=== PATIENT | male | born 1990 ===

== ENCOUNTER 2021-03-24 19:31 | Inpatient (IN) | payer SELFPAY ==
[2021-03-24 19:47] VITALS: BP 144/99; PULSE 70; RESP 18; TEMP 36.6; O2SAT 97
[2021-03-24 19:49] VITALS: BMI 29.2
[2021-03-24 20:29] VITALS: BP 129/78; PULSE 82; RESP 16; TEMP 36.7; O2SAT 98
[2021-03-24] MEDS: hyDROXYzine 25 mg Capsule 50 MG PO (21:31)
[2021-03-24] MEDS: trazodone 50 mg Tablet PO (21:31)
--- NOTE | 2021-03-24 21:35 | PC.NURSE ---
PT REQUESTED SLEEP AND ANXIETY MEDS, TRAZODONE 50MG PO FOR SLEEP AND VISTARIL 50MG PO FOR ANXIETY GIVEN.
--- NOTE | 2021-03-24 22:00 | PC.NURSE ---
PT RESTING QUIETLY WITH BOTH EYES CLOSED.
[2021-03-25 06:00] VITALS: BP 122/99; PULSE 89; RESP 15; TEMP 36.6; O2SAT 98
--- NOTE | 2021-03-25 06:31 | PM.NHP ---
Providers/Chief Complaint Admitting Physician: Aurelio Weber MD Chief Complaint: SI HPI NPU History of Present Illness Paulie Castillo is a 30 year old male who presented to the outside hospital after an intentional overdose with acetaminophen, brought in by law enforcement, who was called for domestic dispute. He reported that 8 p.m. the night previous, he attempted suicide with approximately 27 acetaminophens; feeling depressed over the loss of his daughter in November of 2019, history of depression and post-traumatic stress disorder, but denied previous suicide attempt. He denies being suicidal at this time, but reports he wants to get back on his medication. There was intentional vomiting after the ingestion according to the patient. He was given N-acetylcysteine prophylactically but then his acetaminophen level came back negative, and they proceeded with finding him a place for ongoing treatment. His UDS there was positive for amphetamines, methamphetamines, and cannabis. He was transferred to [facility] and admitted to the neuropsychiatric unit for definitive treatment of those issues. On the unit, he presents reporting that he got in an argument with his girlfriend, he reports that he came up here from [facility], and is in the [employer], endorses being on Buspar and Abilify, but has not been on it for some time. He has never been in a psychiatric hospital. He reports getting some outpatient services in the past and being off of these medications that he reports were effective for many years. He endorsed no previous history of suicide attempt, reports that he has been struggling with mental health issues throughout his life, but things got worse last year when his daughter who was 4 months, 6 days old of [place]. He reports that he moved here, got , and now has a stepchild. He reports that finances have been problematic, and they have been arguing for a couple of weeks. He reports that he has anger problems on top of his depression and post-traumatic stress disorder. He reports that he is open to restarting the Buspar and the Abilify because he reports they were effective in the past. PSYCHIATRIC HISTORY: As above. SUBSTANCE ABUSE HISTORY: He was not forthcoming with any addiction problems but did acknowledge that he has used recently. FAMILY HISTORY: He reports that there are no mental health issues but does endorse his dad?s side having significant alcohol and other drug issues. He denies any history of suicide attempts or completions. DEVELOPMENTAL HISTORY: He denies any issues with his mother?s or delivery of him. He met all developmental milestones on time. He denies any speech therapy, learning support, emotional support, or special education classes. PSYCHOSOCIAL HISTORY: He reports that his parents were together when he was born and that he has a younger brother that is the product of that same union. Neither of his parents had children with anyone else. He reports that his childhood was pretty good, and he denied emotional, physical, or sexual abuse. He did report having a seizure at one point when he was kid and they said it was somehow related to him getting some bug spray that was very heavily produced with DEET and spraying it all over him at one time. He endorses he graduated from high school and college. He endorses being a heterosexual with his longest relationship being about five to seven years. He has been just one time. He had the one daughter who last year. He has never been in the , endorses Anglican. He reports that his longest employment was 3 ? years in the [employer]. He lives in a house with his and stepchild. LEGAL HISTORY: He reports he has been in group home probably four times, the longest time for three days. MEDICAL HISTORY: He reports a history of seizure when he was younger and also endorses a light wrist injury that was evaluated at the outside hospital, and they gave him a soft splint. Meds NPU Home Medications Medication Instructions Recorded Confirmed Last Taken Type No Known Home Medications 03/24/21 03/24/21 Unknown History Allergies Allergy/AdvReac Type Severity Reaction Status Date / Time No Known Allergies Allergy Verified 03/24/21 20:26 Mental Status Exam MSE Comments: This is a well-nourished, well -developed, white male, in hospital scrubs, with adequate grooming, and eye contact. No abnormal movements. Cooperative with exam in no acute distress. Speech was normal rate and volume. Mood described as pretty good; affect congruent. Thought process, organized. Thought content: patient denied any suicidal or homicidal ideation, there were no delusions reported or noted, patient denied any auditory or visual hallucinations. Attention, concentration, and memory appear intact but were not formally tested. He is alert and oriented times three. Insight and judgment are fair, impulse control is limited. Vitals/I&O/Wt Last Vital Signs Temp 98.1 F 03/24/21 20:29 Pulse 82 03/24/21 20:29 Resp 16 03/24/21 20:29 BP 129/78 03/24/21 20:29 Pulse Ox 98 03/24/21 20:29 Weight last 48 hrs Weight 100.698 kg A&P Assessment and plan (1) Bereavement: Status: Acute (2) Intermittent explosive disorder: Status: Acute (3) History of post traumatic stress disorder: Status: Acute (4) Methamphetamine abuse: Status: Acute (5) Cannabis abuse: Status: Acute Additional A&P Information This is a 30-year-old, white male, with bereavement, partner-relational problems, post-traumatic stress disorder, by history, intermittent explosive disorder, and depression, who presents status post intentional overdose, who presents wanting to restart medication, but is also very interested in leaving as soon as possible, with active addiction. RECOMMENDATION AND PLAN: 1. Continue current medication. Start Buspar 20 mg po qhs and Abilify 2 mg po qhs. 2. Encourage individual, group, and milieu therapy. 3. Continue q-15 minute checks for safety. 4. Encourage sober living treatment after discharge at the highest level of care to which he is willing to commit. Involuntary Hold Information 96 Hour Hold: 96 Hour Involuntary Admission: Yes 96 Hour Hold Ending Date: 03/30/21 96 Hour Hold Ending Time: 19:10 Attestations NPU Medical Necessity Statement*: Inpatient hospitalization is medically necessary and the clinically appropriate intervention, at this time. We will monitor medications and make changes as indicated. Patient will be in the hospital for over two midnights. Likely length of stay is 1-3 days. Coding Level of Care Code Acute Platform Inspector for Martha Miguel Diagnoses Bereavement Z63.4 Intermittent explosive disorder F63.81 History of post traumatic stress disorder Z86.59 Methamphetamine abuse F15.10 Cannabis abuse F12.10
[2021-03-25 13:34] VITALS: BP 121/66; PULSE 73; RESP 20; TEMP 36.6; O2SAT 97
[2021-03-25] MEDS: ARIPiprazole 2 mg Tablet PO (20:02)
[2021-03-25] MEDS: hyDROXYzine 25 mg Capsule 50 MG PO (20:02)
[2021-03-25] MEDS: BuSPIRONE 10 mg Tablet 20 MG PO (20:03)
[2021-03-25] MEDS: trazodone 50 mg Tablet PO (20:03)
[2021-03-25 20:54] VITALS: BP 126/75; PULSE 60; RESP 20; TEMP 37; O2SAT 98
[2021-03-26] MEDS: ibuprofen 600 mg Tablet PO (05:08)
[2021-03-26 05:21] VITALS: BP 118/83; PULSE 109; RESP 20; TEMP 36.5; O2SAT 97
[2021-03-26 13:55] VITALS: BP 139/86; PULSE 93; RESP 17; TEMP 36.7; O2SAT 98
--- NOTE | 2021-03-26 17:59 | PM.NPN ---
Subjective NPU Subjective: Interval history: Patient presents today reporting that he feels very stupid about his choices the other day and he is not with significant intensity the possibility that he had a positive methamphetamine screen he is completely forthcoming in his cannabis use but denies use of other substances. He reports that his cannabis use is known to his quevedo. He denies he would put his career and livelihood at risk in that way. Spoke with his who agrees with that position and we discussed the risk benefits and alternatives of discharge in the morning. He endorses that he is tolerating his medications being restarted. Mental Status Exam MSE Comments: This is a well-nourished, well -developed, white male, in hospital scrubs, with adequate grooming, and eye contact. No abnormal movements. Cooperative with exam in no acute distress. Speech was normal rate and volume. Mood described as pretty good; affect congruent. Thought process, organized. Thought content: patient denied any suicidal or homicidal ideation, there were no delusions reported or noted, patient denied any auditory or visual hallucinations. Attention, concentration, and memory appear intact but were not formally tested. He is alert and oriented times three. Insight and judgment are fair, impulse control is limited. Vitals/I&O/Wt Last Vital Signs Temp 98.1 F 03/26/21 21:15 Pulse 93 03/26/21 21:15 Resp 17 03/26/21 21:15 BP 139/86 03/26/21 21:15 Pulse Ox 98 03/26/21 21:15 A&P Additional A&P Information (1) Bereavement: (2) Intermittent explosive disorder: (3) History of post traumatic stress disorder: (4) Methamphetamine abuse: (5) Cannabis abuse: Additional A&P Information This is a 30-year-old, white male, with bereavement, partner-relational problems, post-traumatic stress disorder, by history, intermittent explosive disorder, and depression, who presents status post intentional overdose, who presents wanting to restart medication, but is also very interested in leaving as soon as possible, with active addiction. RECOMMENDATION AND PLAN: 1. Continue current medication. 2. Encourage individual, group, and milieu therapy. 3. Continue q-15 minute checks for safety. 4. Encourage sober living treatment after discharge at the highest level of care to which he is willing to commit. Involuntary Hold Information 96 Hour Hold: 96 Hour Involuntary Admission: Yes 96 Hour Hold Ending Date: 03/30/21 96 Hour Hold Ending Time: 19:10 Attestations NPU Medical Necessity Statement*: Inpatient hospitalization is medically necessary and the clinically appropriate intervention, at this time. We will monitor medications and make changes as indicated. Likely length of stay is 1-2 days. Coding Level of Care Code Acute Info Print Press Operator for Martha Miguel
[2021-03-26] MEDS: nicotine 2 mg Gum BUCCAL (19:12)
[2021-03-26] MEDS: BuSPIRONE 10 mg Tablet 20 MG PO (20:05)
[2021-03-26] MEDS: trazodone 50 mg Tablet PO (20:06)
[2021-03-26] MEDS: hyDROXYzine 25 mg Capsule 50 MG PO (20:06)
[2021-03-26] MEDS: ARIPiprazole 2 mg Tablet PO (20:06)
[2021-03-26 21:15] VITALS: BP 139/86; PULSE 93; RESP 17; TEMP 36.7; O2SAT 98
--- NOTE | 2021-03-26 23:45 | PC.NURSE ---
prn 2001 Administered 50mg Vistaril for anxiety and 50mg Trazodone for a sleep aid. Will continue to monitor.
[2021-03-27] MEDS: ibuprofen 600 mg Tablet PO (05:22)
[2021-03-27 06:00] VITALS: BP 124/89; PULSE 79; RESP 18; TEMP 36.4; O2SAT 96
--- NOTE | 2021-03-27 06:27 | PM.NDC ---
Diagnoses at Discharge Discharge Diagnosis (1) Bereavement: Status: Acute (2) Intermittent explosive disorder: Status: Acute (3) History of post traumatic stress disorder: Status: Acute (4) Methamphetamine abuse: Status: Deleted (5) Cannabis abuse: Status: Acute Reason for Visit Reason for Visit: SI Brief History: History of Present Illness Pualie Castillo is a 30 year old male who presented to the outside hospital after an intentional overdose with acetaminophen, brought in by law enforcement, who was called for domestic dispute. He reported that 8 p.m. the night previous, he attempted suicide with approximately 27 acetaminophens; feeling depressed over the loss of his daughter in November of 2019, history of depression and post-traumatic stress disorder, but denied previous suicide attempt. He denies being suicidal at this time, but reports he wants to get back on his medication. There was intentional vomiting after the ingestion according to the patient. He was given N-acetylcysteine prophylactically but then his acetaminophen level came back negative, and they proceeded with finding him a place for ongoing treatment. His UDS there was positive for amphetamines, methamphetamines, and cannabis. He was transferred to [facility] and admitted to the neuropsychiatric unit for definitive treatment of those issues. On the unit, he presents reporting that he got in an argument with his girlfriend, he reports that he came up here from [facility], and is in the [employer] union, endorses being on Buspar and Abilify, but has not been on it for some time. He has never been in a psychiatric hospital. He reports getting some outpatient services in the past and being off of these medications that he reports were effective for many years. He endorsed no previous history of suicide attempt, reports that he has been struggling with mental health issues throughout his life, but things got worse last year when his daughter who was 4 months, 6 days old of [facility]. He reports that he moved here, got , and now has a stepchild. He reports that finances have been problematic, and they have been arguing for a couple of weeks. He reports that he has anger problems on top of his depression and post-traumatic stress disorder. He reports that he is open to restarting the Buspar and the Abilify because he reports they were effective in the past. PSYCHIATRIC HISTORY: As above. SUBSTANCE ABUSE HISTORY: He was not forthcoming with any addiction problems but did acknowledge that he has used recently. FAMILY HISTORY: He reports that there are no mental health issues but does endorse his dad?s side having significant alcohol and other drug issues. He denies any history of suicide attempts or completions. DEVELOPMENTAL HISTORY: He denies any issues with his mother?s or delivery of him. He met all developmental milestones on time. He denies any speech therapy, learning support, emotional support, or special education classes. PSYCHOSOCIAL HISTORY: He reports that his parents were together when he was born and that he has a younger brother that is the product of that same union. Neither of his parents had children with anyone else. He reports that his childhood was pretty good, and he denied emotional, physical, or sexual abuse. He did report having a seizure at one point when he was kid and they said it was somehow related to him getting some bug spray that was very heavily produced with DEET and spraying it all over him at one time. He endorses he graduated from high school and college. He endorses being a heterosexual with his longest relationship being about five to seven years. He has been just one time. He had the one daughter who last year. He has never been in the , endorses Religion. He reports that his longest employment was 3 ? years in the [employer]. He lives in a house with his and stepchild. LEGAL HISTORY: He reports he has been in group home probably four times, the longest time for three days. MEDICAL HISTORY: He reports a history of seizure when he was younger and also endorses a light wrist injury that was evaluated at the outside hospital, and they gave him a soft splint. Hospital Course Hospital Course He quickly acclimated to the individual, group and mood therapies provided. We restarted medications he had been on previously successfully, but he has been off of these medications for some time. He showed marked improvement and was able to contract for safety prior to discharge. At the outside hospital, patient had routine laboratory studies which were within normal limits except for few outliers. Additionally there was a general medical evaluation which was also within normal limits and revealed no new acute processes. Discharge Summary: At the time of discharge, he denied psychosis or lethality. Mood and anxiety were well managed. Patient endorsed a plan to avoid all drugs of abuse and follow-up with the aftercare recommendations of the treatment team. Patient was evaluated and deemed to be absent credible lethality, and had achieved the maximum benefit from an inpatient hospitalization, so was discharged. Involuntary Hold Information 96 Hour Hold: 96 Hour Involuntary Admission: Yes 96 Hour Hold Ending Date: 03/30/21 96 Hour Hold Ending Time: 19:10 Mental Status Exam MSE Comments: This is a well-nourished, well -developed, white male, in hospital scrubs, with adequate grooming, and eye contact. No abnormal movements. Cooperative with exam in no acute distress. Speech was normal rate and volume. Mood described as pretty good; affect congruent. Thought process, organized. Thought content: patient denied any suicidal or homicidal ideation, there were no delusions reported or noted, patient denied any auditory or visual hallucinations. Attention, concentration, and memory appear intact but were not formally tested. He is alert and oriented times three. Insight and judgment are fair, impulse control is limited. Discharge Data Vitals: Last Vital Signs Temp 98.1 F 03/26/21 21:15 Pulse 93 03/26/21 21:15 Resp 17 03/26/21 21:15 BP 139/86 03/26/21 21:15 Pulse Ox 98 03/26/21 21:15 Discharge Plan Discharge Patient Disposition: Home Condition: Stable Prescriptions: New trazodone 50 mg Tablet 50 mg PO BEDTIME PRN (Reason: Sleep) 30 Days Qty: 30 RF: 1 buspirone 10 mg Tablet 20 mg PO BEDTIME 30 Days Qty: 30 RF: 1 hydroxyzine pamoate 25 mg Capsule 50 mg PO Q6H PRN (Reason: Anxiety) 30 Days Qty: 120 RF: 1 aripiprazole 2 mg Tablet 2 mg PO BEDTIME 30 Days Qty: 30 RF: 1 Discharge Orders: Discharge Order (Routine); Ordered 03/27/21 Ordered By: Aurelio Weber Referrals: [facility] [Other] (Walk-in Mon-Fri 8am to 4pm for initial assessment) Discharge Diet: Regular Discharge Activity: Resume usual activity Patient Instructions: Opioid Safety Discharge Attestations NPU Time Spent in Discharge Care*: less than 30 min Specific Discharge Activities: Specific discharge activities: educating patient, discussing with briefcase sewer/social workers/dc planners, documenting/other paperwork and evaluating patient/reviewing data Coding Level of Care Code Acute Chg FW DC note Diagnoses Bereavement Z63.4 Intermittent explosive disorder F63.81 History of post traumatic stress disorder Z86.59 Methamphetamine abuse F15.10 Cannabis abuse F12.10
[2021-03-27 07:43] VITALS: BP 124/89; PULSE 79; RESP 18; TEMP 36.4; O2SAT 96
== END 2021-03-27 10:07 | disposition home or self-care (01) | DRG 883 ==
PROVIDERS: Admitting Provider Psychiatry & Neurology Psychiatry; Visit Provider Psychiatry & Neurology Psychiatry
DX: F63.81 Intermittent explosive disorder (principal); F32.9 Major depressive disorder, single episode, unspecified; Z63.4 Disappearance and death of family member; Z91.5 Personal history of self-harm; F15.10 Other stimulant abuse, uncomplicated; F12.10 Cannabis abuse, uncomplicated; Z63.0 Problems in relationship with spouse or partner; Z59.9 Problem related to housing and economic circumstances, unspecified; Z81.3 Family history of other psychoactive substance abuse and dependence; Z86.59 Personal history of other mental and behavioral disorders
CPT/HCPCS: 97165